=== PATIENT | female | born 1985 | race Caucasian/White ===

== ENCOUNTER → 2017-01-08 | Outpatient (CLI) | payer BC, OTHER ==
--- NOTE | 2017-01-08 21:25 | US ---
EXAMINATION TYPE: US OB <=14 wks transvag DATE OF EXAM: 01/08/2017 5:07 PM COMPARISON: NONE CLINICAL HISTORY: Z36 CONFIRM DATES, morbidly obese patient with retroverted uterus, technically diff icult and limited study. EXAM PERFORMED: Transvaginal (TV) and Transabdominal (TA) EXAM MEASUREMENTS: GESTATIONAL AGE / DATING Physician Established: not yet established Dates by LMP: (10 weeks/5 days) EDC: 08/01/17 Dates by First Scan: 1st scan today Dates by Current Scan for: (10 weeks/0 days) EDC: 08/06/17 MATERNAL ANATOMY Uterus: 12.9 x 6.7 Right Ovary: not seen Left Ovary: not seen Post CDS / Adnexa: wnl GESTATION / SURVEY CRL: 3.1 (10 weeks/0 days) Yolk Sac (normal less than 6mm): 3mm Heart Rate: 182 bpm IUP: Viable IUP Date of LMP: 10/25/16 TECHNOLOGIST IMPRESSION: Limited, technically difficult study, see above for dates. Exam is noted suboptimal due to technical difficulties per technologist. Marked shadowing and poor de finition is identified. Single live intrauterine gestation is confirmed as gestational sac, yolk sac, pole are identified. heart tones are regular measure 182 bpm which is upper limits of no rmal. No free fluid is seen in pelvis. Neither ovary is clearly seen. No suspicious adnexal masses are noted. IMPRESSION: Suboptimal study but single live intrauterine gestation is confirmed, mean crown-rump length is 3.1 c m corresponding to 10 week 0 day old fetus.
== END | disposition home or self-care (01) ==
LOC: RADUSWWP 16:34
PROVIDERS: ATTEND Obstetrics & Gynecology
DX: Z36 Encounter for antenatal screening of mother (principal); Z3A.10 10 weeks gestation of pregnancy
CPT/HCPCS: 76801; 76817

== ENCOUNTER → 2017-01-24 | Outpatient (CLI) | payer BC ==
[2017-01-24 12:53] LABS: CH 29.1; CHCM 35.3; HCT 35.4 % (34.0-46.0); HDW 3.27; HGB 12.3 gm/dL (11.4-16.0); MCH 28.8 pg (25.0-35.0); MCHC 34.7 g/dL (31.0-37.0); Mean Platelet Volume 8.9; RBC 4.26 m/uL (3.80-5.40); RDW 15.3 % (11.5-15.5); WBC 8.4 k/uL (3.8-10.6)
[2017-01-24 12:55] LABS: Glucose 92 mg/dL (74-99); Non-African American GFR(MDRD) >60 (>60 ml/min/1.73 sqM)
[2017-01-24 13:27] LABS: Hepatitis B Surface Ag Index 0.08
== END | disposition home or self-care (01) ==
LOC: LABWHC1 12:05
PROVIDERS: ATTEND Obstetrics & Gynecology
DX: Z34.81 Encounter for supervision of other normal pregnancy, first trimester (principal); Z3A.00 Weeks of gestation of pregnancy not specified
CPT/HCPCS: 36415; 82565; 82947; 84439; 84443; 85027; 86762; 86780; 86850; 86900; 86901; 87340

== ENCOUNTER → 2017-04-19 | Outpatient (CLI) | payer BC ==
[2017-04-19 10:24] LABS: CH 30.7; CHCM 35.3; HCT 34.9 % (34.0-46.0); HDW 3.67; HGB 12.1 gm/dL (11.4-16.0); MCH 30.3 pg (25.0-35.0); MCHC 34.6 g/dL (31.0-37.0); MCV 87.4 fL (80.0-100.0); Mean Platelet Volume 8.2; Poikilocytosis Slight; RBC 3.99 m/uL (3.80-5.40); RDW 15.4 % (11.5-15.5); WBC 8.2 k/uL (3.8-10.6)
== END | disposition home or self-care (01) ==
LOC: LABWHC1 09:10
PROVIDERS: ATTEND Obstetrics & Gynecology
DX: O99.282 Endocrine, nutritional and metabolic diseases complicating pregnancy, second trimester (principal); E03.9 Hypothyroidism, unspecified
CPT/HCPCS: 36415; 82950; 84439; 84443; 85027; 86850

== ENCOUNTER → 2017-04-30 | Outpatient (CLI) | payer BC ==
[2017-04-30 13:12] LABS: Glucose 3 Hour, Gest 88 mg/dL
== END | disposition home or self-care (01) ==
LOC: LABWHC1 08:47
PROVIDERS: ATTEND Obstetrics & Gynecology
DX: O99.810 Abnormal glucose complicating pregnancy (principal); Z3A.00 Weeks of gestation of pregnancy not specified
CPT/HCPCS: 36415; 82951; 82952

== ENCOUNTER 2017-07-01 12:05 | Outpatient (CLI) | payer BC ==
[2017-07-01 12:38] VITALS: BP 131/75; PULSE 106; RESP 17
[2017-07-01 12:40] LABS: Appearance,Urine Cloudy (Clear); Bilirubin,Urine Negative (Negative); Glucose,Urine (UA) Negative (Negative); Ketones,Urine Negative (Negative); Leukocyte Esterase,Urine Negative (Negative); Mucus,Urine Rare /hpf; Nitrite,Urine Negative (Negative); Particle Count 3929; Protein,Urine Trace (Negative); RBC,Urine <1 /hpf (0-5); Squamous Epithelial Cell,Urine 6 /hpf (0-4); UA Billing (MACRO vs. MICRO) MICRO; Urobilinogen,Urine <2.0 mg/dL (<2.0); WBC,Urine 1 /hpf (0-5)
[2017-07-01 12:52] LABS: Basophils % (A) 0 %; CH 30.3; CHCM 36.1; Eosinophils # (A) 0.1 k/uL (0-0.7); Eosinophils % (A) 1 %; HCT 34.9 % (34.0-46.0); HDW 3.77; HGB 12.5 gm/dL (11.4-16.0); Hyperchromasia Slight; Luc # (Auto) 0.13; Luc % (Auto) 2; Lymphocytes # (A) 1.3 k/uL (1.0-4.8); Lymphocytes % (A) 16 %; MCH 30.2 pg (25.0-35.0); MCHC 35.8 g/dL (31.0-37.0); MCV 84.4 fL (80.0-100.0); Mean Platelet Volume 7.8; Monocytes # (A) 0.4 k/uL (0-1.0); Monocytes % (A) 5 %; Neutrophils # (A) 5.8 k/uL (1.3-7.7); Neutrophils % (A) 75 %; Poikilocytosis Slight; RBC 4.14 m/uL (3.80-5.40); RDW 15.5 % (11.5-15.5); WBC 7.7 k/uL (3.8-10.6); WBC (Perox) 7.61
[2017-07-01 12:59] LABS: ALT 25 U/L (9-52); AST 15 U/L (14-36); LDH 382 U/L (313-618); Non-African American GFR(MDRD) >60 (>60 ml/min/1.73 sqM); Uric Acid 4.8 mg/dL (3.7-7.4)
--- NOTE | 2017-09-25 08:17 | P.MSEPDOC ---
Presenting Problems - Arrival Data Date of Arrival on Unit: 07/01/17 Time of Arrival on Unit: 12:05 Mode of Transport: Ambulatory Medical History - Information : 3 Para: 2 Term: 2 : 0 Abortions: Spontaneous or Elective: 0 Number of Living Children: 2 - Gestational Age Gestational Age by ZORA (wks/days): 35 Weeks and 4 Days Vital Signs - Pulse Right Brachial Pulse Rate: 106 Pulse Assessment Method: Automatic Cuff - Respirations Respiratory Rate: 17 Oxygen Delivery Method: Room Air O2 Sat by Pulse Oximetry: 98 - Blood Pressure Right Arm Blood Pressure: 131/75 Blood Pressure Mean: 93 Blood Pressure Source: Automatic Cuff Disposition - Disposition Discharge Date: 07/01/17 Discharge Time: 13:37 I agree with the RN Medical Screening Exam: No Physician's MSE Comment: This note is incomplete. It does not say why the patient was here, or which physician was spoken with or whether the patient was discharged home or admitted. Risk & Benefit of care provided described in d/c instruction: Yes Diagnosis: SUPERVISION OF OTHER HIGH RISK PREGNANCIES, THIRD TRIMESTER
== END 2017-07-01 13:38 | disposition home or self-care (01) ==
LOC: FBPOP 12:05
PROVIDERS: ATTEND Obstetrics & Gynecology
DX: O09.893 Supervision of other high risk pregnancies, third trimester (principal); Z3A.35 35 weeks gestation of pregnancy
CPT/HCPCS: 59025; 81001; 82565; 83615; 84450; 84460; 84550; 85025

== ENCOUNTER 2017-07-26 06:17 | Inpatient (IN) | payer BC ==
--- NOTE | 2017-07-25 16:35 | P.HPOB ---
History of Present Illness H&P Date: 07/25/17 Chief Complaint: Repeat Low Transverse 32 year old at 39 weeks presents for repeat low transverse with tubal ligation. Review of Systems All systems: negative Constitutional: Denies chills, Denies fever Eyes: denies blurred vision, denies pain Ears, nose, mouth and throat: Denies headache, Denies sore throat Cardiovascular: Denies chest pain, Denies shortness of breath Respiratory: Denies cough Gastrointestinal: Denies abdominal pain, Denies diarrhea, Denies nausea, Denies vomiting Genitourinary: Denies dysuria, Denies hematuria Musculoskeletal: Denies myalgias Integumentary: Denies pruritus, Denies rash Neurological: Denies numbness, Denies weakness Psychiatric: Denies anxiety, Denies depression Endocrine: Denies fatigue, Denies weight change Past Medical History Past Medical History: Hypertension, Thyroid Disorder Additional Past Medical History / Comment(s): OB history: 2 previous c- sections. THis is her third and she has had care with me since the first trimester. O neg, abs neg, Rub Imm, Treponemal ab neg, HEp B neg, Quad neg, 1hr Abnormal, 3hr normal. recieved Rhogam on 05/15 at 28 weeks. History of Any Multi-Drug Resistant Organisms: None Reported Past Surgical History: Section, Cholecystectomy Past Anesthesia/Blood Transfusion Reactions: Motion Sickness, Postoperative Nausea & Vomiting (PONV) Smoking Status: Former smoker Past Alcohol Use History: None Reported Past Drug Use History: None Reported - Past Family History Daughter(s) Family Medical History: Deep Vein Thrombosis (DVT) Medications and Allergies Home Medications Medication Instructions Recorded Confirmed Type Levothyroxine Sodium [Synthroid] 175 mcg PO DAILY 07/01/17 07/23/17 History Loratadine [Claritin] 10 mg PO DAILY 07/01/17 07/23/17 History Pnv,Calcium 72/Iron/Folic Acid 1 tab PO DAILY 07/01/17 07/23/17 History [ Plus Tablet] Allergies Allergy/AdvReac Type Severity Reaction Status Date / Time kiwi Allergy Swelling Verified 07/23/17 13:41 Exam Osteopathic Statement: *. No significant issues noted on an osteopathic structural exam other than those noted in the History and Physical/Consult. HEart: RRR Lungs: CTAB Abdomen: soft, nontender Extremeties: neg ramón's Assessment and Plan (1) Previous section Status: Acute (2) Family planning Status: Acute Plan: 1. repeat low transverse with tubal ligation
[2017-07-26] MEDS ORDERED: CITRIC ACID-SODIUM CITRATE 15 ML CUP PO ONE (06:20)
[2017-07-26] MEDS ORDERED: ceFAZolin 3 GM in SODIUM CHLORIDE 0.9% 100 ML IVPB ONE (06:20)
[2017-07-26 06:37] VITALS: BMI 53.8
[2017-07-26] MEDS: LACTATED RINGERS 1,000 ML IV SCH ×2 (06:42→16:18)
[2017-07-26 06:52] LABS: CHCM 37.5; HCT 35.6 % (34.0-46.0); Hyperchromasia Slight; Monocytes # (A) 0.4 k/uL (0-1.0); Poikilocytosis Slight
[2017-07-26 07:00] LABS: Basophils # (A) 0.1 k/uL (0-0.2); Basophils % (A) 1 %; CH 31.4; Eosinophils # (A) 0.1 k/uL (0-0.7); Eosinophils % (A) 2 %; HDW 3.73; HGB 12.8 gm/dL (11.4-16.0); Luc # (Auto) 0.13; Luc % (Auto) 2; Lymphocytes # (A) 1.6 k/uL (1.0-4.8); Lymphocytes % (A) 19 %; MCH 30.4 pg (25.0-35.0); MCV 84.5 fL (80.0-100.0); Monocytes % (A) 6 %; Neutrophils # (A) 5.8 k/uL (1.3-7.7); Neutrophils % (A) 71 %; RBC 4.21 m/uL (3.80-5.40); WBC 8.1 k/uL (3.8-10.6); WBC (Perox) 8.28
[2017-07-26] MEDS ORDERED: ePHEDrine SULFATE/0.9% NACL/PF 50 MG/5 ML SYRINGE IV ONE (08:00)
[2017-07-26] MEDS ORDERED: MORPHINE SULFATE (PF) 0.3 MG/0.3 ML SYR ONE (08:00)
[2017-07-26] MEDS ORDERED: ONDANSETRON 4 MG/2 ML VIAL ONE (08:00)
[2017-07-26] MEDS ORDERED: NALBUPHINE 10 MG/ML AMPUL ONE (08:00)
[2017-07-26] MEDS ORDERED: ACETAMINOPHEN TAB 325 MG TAB PO PRN (09:02)
[2017-07-26] MEDS ORDERED: ONDANSETRON 4 MG/2 ML VIAL IVP PRN (09:02)
[2017-07-26] MEDS ORDERED: diphenhydrAMINE 50 MG/ML 1 ML VIAL IVP PRN ×2 (09:02)
[2017-07-26] MEDS ORDERED: KETOROLAC 30 MG/ML 1 ML VIAL IVP PRN (09:02)
[2017-07-26] MEDS ORDERED: METOCLOPRAMIDE 5 MG/ML 2 ML VIAL IVP PRN (09:02)
[2017-07-26] MEDS ORDERED: SIMETHICONE 80 MG CHEWABLE PO PRN (09:02)
[2017-07-26] MEDS ORDERED: MEASLES-MUMPS-RUBELLA VACC/PF 12,500 UNIT/0.5 ML VIAL SQ ONE (09:02)
[2017-07-26] MEDS ORDERED: LANOLIN CREAM 5 GM TUBE TOPICAL PRN (09:02)
[2017-07-26] MEDS ORDERED: Rhogam IMMUNE GLOBULIN 1,500 UNIT/1 ML IM ONE (09:02)
[2017-07-26] MEDS ORDERED: Acetaminophen-Codeine 300-30mg TAB PO PRN ×2 (09:02)
[2017-07-26] MEDS ORDERED: diphenhydrAMINE 25 MG CAP PO PRN (09:02)
[2017-07-26] MEDS ORDERED: NALOXONE 0.4 MG/ML 1 ML VIAL IV PRN (09:02)
[2017-07-26] MEDS ORDERED: diphenhydrAMINE 50 MG CAP PO PRN (09:02)
[2017-07-26] MEDS ORDERED: ZOLPIDEM 5 MG TAB PO PRN (09:02)
[2017-07-26] MEDS ORDERED: OXYTOCIN 20 UNITS/1000 ML NS 1,000 ML IV SCH (09:15)
[2017-07-26] MEDS ORDERED: LACTATED RINGERS 1,000 ML IV SCH (09:15)
[2017-07-26] MEDS: SENNOSIDES-DOCUSATE SODIUM 1 EACH TAB PO SCH (21:44)
--- NOTE | 2017-07-27 00:19 | P.OP ---
Date of Procedure: 07/26/17 Preoperative Diagnosis: 1. 39 weeks and 1 day 2. Previous section 2 3. Family planning Postoperative Diagnosis: 1. at 39 weeks and 1 day 2. Previous section 3. Family planning Procedure(s) Performed: Repeat low transverse with tubal ligation and lysis of adhesions Implants: Anesthesia: spinal Surgeon: Hellen Castro Commercial Manager #1: Cheng Hopkins Estimated Blood Loss (ml): 500 IV fluids (ml): 1,000 Urine output (ml): 200 Pathology: other (Placenta) Condition: stable Disposition: floor Indications for Procedure: Operative Findings: Viable male, Apgars 8, 9, weight 7 lbs. 13 oz. Extensive adhesions from the anterior uterus to the anterior abdominal wall and omentum. Description of Procedure: Patient was taken to the operating room where spinal anesthesia was found be adequate. She was prepped and draped in normal sterile fashion in dorsal supine position with a leftward tilt. Pfannenstiel skin incision was made the scalpel and carried through to the underlying layer of fascia with the scalpel. Fascia was incised in midline and carried bilaterally with the Reeves scissors. The superior aspect of the fascial incision was grasped with Roya clamps elevated and the underlying rectus muscles dissected off with the Reeves's. Attention was then turned to inferior aspect of same incision which in a similar fashion was grasped tented up and the underlying rectus muscles dissected off with the Reeves's. The rectus muscles were the midline and the peritoneum was identified tented up and entered sharply with the scalpel. The incision was extended superiorly and was immediately noted that the uterus was attached by scar tissue to the anterior peritoneum. The Metzenbaums were used to free up some of this scar tissue down to the level of the bladder and the bladder flap was created. The bladder blade was inserted for better visualization. A low transverse incision was then made on the uterus with the scalpel. This was carried bilaterally in a digital manner. Infant's head delivered atraumatically, nose and mouth bulb suctioned, cord clamped and cut, infant handed off to waiting nurses. Apgars 8,9, weight 7 lbs. 13oz. Placenta delivered manually, intact with three-vessel cord. The uterus is exteriorized and cleared of all clots and debris. The uterine incision was closed with 0 Vicryl in a running locked fashion. There was a large raw area and the anterior uterus was scar tissue had been cut free. A sponge was placed here for pressure while attention was turned to the fallopian tubes. The right fallopian tube was grasped with a hemostat and a window was made in the mesosalpinx. The right fallopian tube was doubly ligated and a portion was removed. The pedicles were cauterized with the Bovie. Of note the right ovary is attached to the right side of the uterus. The left fallopian tube was grasped with a hemostat and a window was made in the mesosalpinx. The left fallopian tube was doubly ligated and a portion was removed. The pedicles were cauterized with the Bovie. Any areas that were oozing from the anterior uterus was then cauterized with the Bovie. Hemostasis was assured. The uterus was placed back into the abdomen. The muscles were reapproximated using 2-0 Vicryl in interrupted fashion. The fascia was reapproximated using 0 Vicryl in a running fashion. The subcutaneous tissues closed with 3-0 Vicryl running fashion. The skin was closed sherie. Patient tolerated the procedure well, sponge and instrument counts were correct times 2 and she was taken to the recovery room in stable condition.
[2017-07-27] MEDS: IBUPROFEN 600 MG TAB PO PRN ×3 (06:29→23:59)
[2017-07-27] MEDS: LEVOTHYROXINE 100 MCG TAB PO SCH (06:30)
[2017-07-27] MEDS: LEVOTHYROXINE 75 MCG TAB PO SCH (06:30)
[2017-07-27 08:09] LABS: Basophils % (A) 0 %; CHCM 35.8; Eosinophils % (A) 0 %; HCT 31.4 % (34.0-46.0); HDW 3.68; HGB 11.3 gm/dL (11.4-16.0); Luc # (Auto) 0.19; Luc % (Auto) 2; Lymphocytes % (A) 8 %; MCH 30.5 pg (25.0-35.0); MCHC 36.1 g/dL (31.0-37.0); MCV 84.4 fL (80.0-100.0); Mean Platelet Volume 8.3; Monocytes # (A) 0.6 k/uL (0-1.0); Monocytes % (A) 5 %; Neutrophils # (A) 9.8 k/uL (1.3-7.7); Neutrophils % (A) 85 %; Poikilocytosis Slight; RBC 3.72 m/uL (3.80-5.40); RDW 15.4 % (11.5-15.5); WBC 11.5 k/uL (3.8-10.6); WBC (Perox) 11.32
[2017-07-27] MEDS: SENNOSIDES-DOCUSATE SODIUM 1 EACH TAB PO SCH ×2 (08:09→19:40)
[2017-07-27] MEDS ORDERED: HYDROcodone/APAP 5-325MG 1 EACH TAB PO PRN ×2 (16:11)
--- NOTE | 2017-07-27 16:22 | P.PNOBGPC ---
Subjective - Subjective Principal diagnosis: S/P RLTCS POD #1 Interval history: PT seen and examined. Denies N/V, F/C, CP, SOB, calf pain. Patient reports: Reports appetite normal, Reports voiding normally, Reports pain well controlled, Reports ambulating normally [place]: doing well Objective - Vital Signs Latest vital signs: Vital Signs Temp Pulse Resp BP Pulse Ox 07/27/17 08:15 97.0 F L 75 16 113/56 07/27/17 04:00 98.0 F 90 16 136/71 98 07/27/17 00:00 98.9 F 89 18 158/71 97 07/26/17 19:57 99.2 F 91 16 135/71 97 Intake and Output 07/27/17 07/27/17 07/27/17 06:59 14:59 22:59 Output Total 400 Balance -400 Output: Urine 400 Other: # Voids 1 - Exam Lungs: bilateral: normal Chest: Normal S1, Normal S2 Extremities: Present: normal Abdomen: Present: normal appearance, soft. Absent: distention, tenderness Incision: Present: normal, dry, intact Uterus: Present: normal, firm - Labs Labs: Abnormal Lab Results - Last 24 Hours (Table) 07/27/17 Range/Units 07:37 WBC 11.5 H (3.8-10.6) k/uL RBC 3.72 L (3.80-5.40) m/uL Hgb 11.3 L (11.4-16.0) gm/dL Hct 31.4 L (34.0-46.0) % Neutrophils # 9.8 H (1.3-7.7) k/uL Assessment and Plan (1) Previous section Current Visit: Yes Status: Resolved Code(s): Z98.891 - HISTORY OF UTERINE SCAR FROM PREVIOUS SURGERY SNOMED Code(s): 952170075 (2) Family planning Current Visit: Yes Status: Resolved Code(s): Z30.09 - ENCOUNTER FOR OTH GENERAL CNSL AND ADVICE ON CONTRACEPTION SNOMED Code(s): 34732833 (3) S/P repeat low transverse Current Visit: Yes Status: Acute Code(s): Z98.891 - HISTORY OF UTERINE SCAR FROM PREVIOUS SURGERY SNOMED Code(s): 839464599 (4) Status post tubal ligation at time of delivery, current hosp Narrative/Plan: 1. increase ambulation 2. po pain meds 3. reg diet Current Visit: Yes Status: Acute Code(s): O80 - ENCOUNTER FOR FULL-TERM UNCOMPLICATED DELIVERY; Z30.2 - ENCOUNTER FOR STERILIZATION SNOMED Code(s): 514924259
[2017-07-27] MEDS: LORATADINE 10 MG TAB PO SCH (19:40)
--- NOTE | 2017-07-27 19:44 | P.PN ---
Progress Note - Text Postoperative day 1 status post section under spinal anesthesia, and intrathecal morphine given for postoperative analgesia, patient doing well, there is no anesthesia related complications, further management as per her primary team
[2017-07-28] MEDS: LEVOTHYROXINE 75 MCG TAB PO SCH (06:02)
[2017-07-28] MEDS: LEVOTHYROXINE 100 MCG TAB PO SCH (06:02)
[2017-07-28] MEDS: IBUPROFEN 600 MG TAB PO PRN (08:53)
[2017-07-28] MEDS: SENNOSIDES-DOCUSATE SODIUM 1 EACH TAB PO SCH (08:55)
[2017-07-28 08:57] VITALS: BP 139/81; PULSE 105; RESP 16; TEMP 98.5
--- NOTE | 2017-07-28 10:07 | P.DS ---
Providers Date of admission: 07/26/17 06:17 Expected date of discharge: 07/28/17 Attending physician: Hellen Castro Primary care physician: Valorie De Los Santos - Discharge Diagnosis(es) (1) Previous section Current Visit: Yes Status: Resolved (2) Family planning Current Visit: Yes Status: Resolved (3) S/P repeat low transverse Current Visit: Yes Status: Acute (4) Status post tubal ligation at time of delivery, current hosp Current Visit: Yes Status: Acute Hospital Course: Patient presented for repeat low transverse with tubal ligation. She underwent this procedure without complication. Her postoperative course was uncomplicated. Her pain was controlled with Motrin. She denies nausea, vomiting, chest pain, shortness of breath or calf pain. Her incision is intact , no erythema or drainage. She is tolerating regular diet passing flatus and ambulating and voiding without difficulty. She'll be discharged home postoperative day #2 in stable condition to follow-up with me in one week. Plan - Discharge Summary New Discharge Prescriptions: No Action Pnv,Calcium 72/Iron/Folic Acid [ Plus Tablet] 1 tab PO DAILY Loratadine [Claritin] 10 mg PO DAILY Levothyroxine Sodium [Synthroid] 175 mcg PO DAILY Discharge Medication List Levothyroxine Sodium [Synthroid] 175 mcg PO DAILY 07/01/17 [History] Loratadine [Claritin] 10 mg PO DAILY 07/01/17 [History] Pnv,Calcium 72/Iron/Folic Acid [ Plus Tablet] 1 tab PO DAILY 07/01/17 [ History] Follow up Appointment(s)/Referral(s): Hellen Castro DO [Doctor of Osteopathic Medicine] - 1 Week Discharge Disposition: HOME SELF-CARE
[2017-07-28] MEDS: LORATADINE 10 MG TAB PO SCH (12:45)
== END 2017-07-28 12:42 | disposition home or self-care (01) | DRG 766 ==
LOC: 4FBP 06:17
PROVIDERS: ADMIT Obstetrics & Gynecology; ATTEND Obstetrics & Gynecology
PROC: 0UB70ZZ Excision of Bilateral Fallopian Tubes, Open Approach (ICD-10-PCS; principal; 2017-07-26 08:30)
PROC: 10D00Z1 Extraction of Products of Conception, Low, Open Approach (ICD-10-PCS; principal; 2017-07-26 08:30)
DX: O34.211 Maternal care for low transverse scar from previous cesarean delivery (principal); E03.9 Hypothyroidism, unspecified; O99.284 Endocrine, nutritional and metabolic diseases complicating childbirth; Z87.891 Personal history of nicotine dependence; Z37.0 Single live birth; Z30.2 Encounter for sterilization; Z3A.39 39 weeks gestation of pregnancy; Z79.899 Other long term (current) drug therapy
CPT/HCPCS: 85025; 85461; 86850; 86900; 86901; 88302; 88307; 90707